=== PATIENT | male | born 1985 | race Caucasian/White ===

== ENCOUNTER 2020-01-10 16:07 | Emergency (ER) | payer BC, SELFPAY ==
--- NOTE | ~2020-01-10 | CT_ITS ---
EXAMINATION: CTA BRAIN/CAROTID DATE: 01/10/2020 19:30 INDICATION: Headache. TECHNIQUE: Computed tomographic angiography (CTA) of the head and neck was performed with 100 mL Omni paque-350 intravenous contrast. Multiplanar reconstructions and maximum intensity projection 3D-recon structions of the carotid arteries and of the intracranial arteries were created by the technologist on a separate workstation. Precontrast CT of the head was also obtained. Automated exposure control and iterative reconstruction technique were employed.The dose-length product was 1715.12 mGy-cm. COMPARISON: None. FINDINGS: Carotid arteries: There is 0% stenosis of the right carotid bulb relative to normal distal artery lumen diameter (NASCE T criteria). There is 0% stenosis of the left carotid bulb relative to normal distal artery lumen patricia meter. Evaluation of the vessels cephalad to the level of the carotid bulb the level of the C2 verteb ral body is limited by motion artifact. Cervical soft tissues are unremarkable. Visualized apices of lungs are clear. Mild cervical spondylosis. Head: Small amount of linear high attenuation along a couple sulci in the left parietal region suspicious f or small amount of subarachnoid hemorrhage. No evident active contrast extravasation. No acute infarc tion or abnormal extra axial fluid collection. Ventricles are normal and symmetric. No mass/mass effe ct. The orbits, paranasal sinuses and mastoid air cells are normal. Intracranial arteries There is no hemodynamically significant stenosis in the vertebral, basilar and internal carotid arter ies. Vertebral arteries are codominant. There are no aneurysms identified. Both A1 and P1 segments a re patent. Cerebral arterial arborization appears symmetric. IMPRESSION: 1. Small linear region of increased attenuation along a sulcus in the left parietal region suspicious for small amount of subarachnoid hemorrhage. Differential includes dystrophic calcification. Differe ntial would include small amount of dystrophic calcification. Dr. Garza discussed these findings w gladis Turner at 7:42 PM. 2. 0% stenosis of the left and right carotid bulbs relative to normal distal artery lumen diameter (N ASCET criteria). 3. Normal cerebral angiogram with no evident thrombosis, dissection or aneurysm. Reviewed, dictated and finalized at location A. E'S CLERK IMPRESSION: 1. Small linear region of increased attenuation along a sulcus in the left dylan etal region suspicious for small amount of subarachnoid hemorrhage. Differentia l includes dystrophic calcification. Differential would include small amount of dystrophic calcification. Dr. Garza discussed these findings with JEANIE Turner at 7:42 PM. 2. 0% stenosis of the left and right carotid bulbs relative to normal distal ar janice lumen diameter (NASCET criteria). 3. Normal cerebral angiogram with no evident thrombosis, dissection or aneurysm .
[2020-01-10 17:07] VITALS: BP 164/94; PULSE 72; RESP 16; TEMP 36.8; O2SAT 100
[2020-01-10 18:43] LABS: Basophils Absolute Auto 0.1 K/mm3 (0.0-0.1); Basophils Percent Auto 0.7 % (0.2-1.2); Eosinophils Absolute Auto 0.1 K/mm3 (0-0.3); Eosinophils Percent Auto 1.1 % (0-4.4); Hematocrit 43.3 % (42.0-52.0); Hemoglobin 14.4 g/dL (14.0-18.0); Immature Granulocyte Absolute 0.02 K/mm3 (0.00-0.031); Immature Granulocyte Percent A 0.2 % (0-0.5); Lymphocytes Absolute Auto 2.91 K/mm3 (0.9-3.2); Lymphocytes Percent Auto 35.2 % (18.3-44.2); Mean Corpuscular HGB Conc 33.3 g/dl (32-36); Mean Corpuscular Hemoglobin 30.4 pg (26-34); Mean Corpuscular Volume 91.4 fl (80-100); Mean Platelet Volume 12.9 fl (7.4-10.4); Monocytes Absolute Auto 0.7 K/mm3 (0.1-0.6); Monocytes Percent Auto 8.3 % (2.6-8.5); Neutrophils Absolute Auto 4.5 K/mm3 (1.3-6.7); Neutrophils Percent Auto 54.5 % (45.5-73.1); Platelet Count Result 235 k/mm3 (150-375); Red Blood Count 4.74 M/mm3 (4.6-6.20); Red Cell Distribution Width 12.7 % (11.5-14.5); White Blood Count 8.3 K/mm3 (4.5-10.0)
--- NOTE | 2020-01-10 18:52 | ED.GENADULT ---
HPI - General Adult General Chief complaint: Headache <Diaz Turner PA-C - Last Filed: 01/10/20 20:26> Stated complaint: RODRIGUEZ, felt like i was going to pass out <Diaz Turner PA-C - Last Filed: 01/10/20 20:26> Time Seen by Provider: 01/10/20 17:14 <Diaz Turner PA-C - Last Filed: 01/10/20 20:26> Source: patient <Diaz Turner PA-C - Last Filed: 01/10/20 20:26> Mode of arrival: ambulatory <Diaz Turner PA-C - Last Filed: 01/10/20 20:26> Limitations: no limitations <Diaz Turner PA-C - Last Filed: 01/10/20 20:26> History of Present Illness HPI narrative: Patient is a 34-year-old male who ambulates to emergency department with complaints of right temporal parietal headache that started today noting only posterior mild occipital pain at this time patient denies any injury trauma or recent illness notes that he did have a similar occurrence last week which resolved patient notes today he felt like he might pass out when it occurred. Patient has not taken anything for his symptoms and presents per private vehicle and has no other complaints denies any new medications illicit drug use or alcohol use <Diaz Turner PA-C - Last Filed: 01/10/20 20:26> Related Data Allergies/adverse reactions: Allergies Allergy/AdvReac Type Severity Reaction Status Date / Time No Known Allergies Allergy Verified 07/01/18 16:58 <Diaz Turner PA-C - Last Filed: 01/10/20 20:26> Review of Systems Review of Systems: All systems reviewed & are unremarkable except as noted in HPI and below <Diaz Turner PA-C - Last Filed: 01/10/20 20:26> [facility] Family History Family History: Family History (Updated 03/11/18 @ 10:03 by DOCTOR UNKNOWN) Mother Family history of mental disorder Depression Family history of attention deficit hyperactivity disorder (ADHD) Other Diabetes mellitus <Diaz Turner PA-C - Last Filed: 01/10/20 20:26> Social History Social History: Social History Smoking status: Never smoker Alcohol intake: current Gender identity (if verbalized by the patient): Male <Diaz Turner PA-C - Last Filed: 01/10/20 20:26> Exam Narrative: Exam Narrative: GENERAL: Well-appearing, well-nourished, and in no acute distress. HEAD: Normocephalic, atraumatic. EYES: PERRLA and EOMI. ENT: Nares clear, no rhinorrhea or epistaxis. Mucous membranes moist. Oropharynx without tonsillar hypertrophy exudate or other lesions. Bilateral TMs pearly mike nonbulging NECK: Supple. No adenopathy or masses. CHEST: Clear to auscultation. No respiratory distress. No wheezes rales or rhonchi HEART: Regular rate and rhythm. No murmur heard. Normal peripheral pulses. EXTREMITIES: Normal range of motion. No edema. SKIN: Warm, dry, no rash. NEURO: No focal deficits. Alert and oriented x3. Cranial nerves II through XII grossly intact. Cerebellar intact. Normal speech and gait PSYCH: Normal mood and affect. <Diaz Turner PA-C - Last Filed: 01/10/20 20:26> Course Course Emergency Course: Patient in the ER aware of case findings treatment plan and diagnosis given Diego in the emergency department will be transferred to [place] for neurosurgical evaluation as recommended by neurosurgery <Diaz Turner PA-C - Last Filed: 01/10/20 20:26> CAMPUS COORDINATOR/PA Physician Supervision For this patient encounter, I reviewed the CAMPUS COORDINATOR or PA documentation, treatment plan, and medical decision making; and I had [id number] time with this patient. Patient is sitting in bed in no acute distress. He is alert and oriented x 4. nonfocal neurological exam. no respiratory distress. He is aware of CT findings and plan for transfer. <Marjorie Bello MD - Last Filed: 01/10/20 20:46> Consultations Consultation #1: Discussed case with neurosurgery who would like the patient to be loaded with 1 g o
[2020-01-10 18:53] LABS: Partial Thromboplastin Time 25.7 SECONDS (22.3-36.8); Prothrombin Time 12.6 Seconds (11.1-14.7)
[2020-01-10 18:57] LABS: Blood Urea Nitrogen 12 mg/dL (9-20); Calcium 9.7 mg/dL (8.4-10.2); Carbon Dioxide 29 mmol/L (22-30); Chloride 100 mmol/L (98-107); Estimated CRCL calculation 135 ml/min; Estimated Glomerular Filt Rate > 60; Glucose 88 mg/dL (75-110); Potassium 3.7 mmol/L (3.4-5.0); Sodium 142 mmol/L (137-145)
--- NOTE | 2020-01-10 20:20 | PC.NURSE ---
Called [facility] to transport patient to [place] [facility]. Topete down a truck tonight and declined.
[2020-01-10] MEDS: levETIRAcetam 1000MG/NACL100ML 1,000 MG/100 ML BAG 400 MG IVPB (20:30)
[2020-01-10 20:53] VITALS: BP 155/105; PULSE 88; RESP 22; O2SAT 100
== END 2020-01-10 21:06 | disposition short-term general hospital (02) ==
PROVIDERS: Emergency Medicine Emergency Medical Services; Emergency Provider General Practice; PCP Family Medicine
DX: I60.9 Nontraumatic subarachnoid hemorrhage, unspecified (principal)
CPT/HCPCS: 36415; 70496; 70498; 80048; 85025; 85610; 85730; 96365; 99291; J1953; Q9967

== ENCOUNTER 2021-03-08 15:05 | Emergency (ER) | payer BC, SELFPAY ==
[2021-03-08 15:13] VITALS: BP 142/92; PULSE 85; RESP 16; TEMP 37; O2SAT 100
--- NOTE | 2021-03-08 15:33 | ED.URI ---
HPI - URI/Sore Throat General Chief Complaint: Ear Stated Complaint: ear pain/sinus pressure Time Seen by Provider: 03/08/21 15:21 Source: patient and RN notes reviewed Mode of arrival: ambulatory Limitations: no limitations History of Present Illness HPI Narrative: Patient presents today complaint of a 4-day history of right ear pressure and pain, sinus pressure, postnasal drip, and some intermittent dizziness. Denies cough, fever. He does report some's right-sided sore throat, but states is likely due to his sore throat. He has been taking Mucinex and some Vicks nasal spray. MD elicited complaint: nasal congestion and sinus pain Related Data Home Medications Medication Instructions Recorded Confirmed dextroamphetamine-amphetamine 15 mg PO DAILY 03/08/21 03/08/21 Allergies Allergy/AdvReac Type Severity Reaction Status Date / Time No Known Allergies Allergy Verified 03/08/21 15:11 Review of Systems Review of Systems: Narrative: CONSTITUTIONAL: Denies body aches, fever, chills, or sweats. EYES: Denies visual changes, redness, or discharge. ENT: Denies rhinorrhea. + Right ear pain and pressure, sinus pressure, postnasal drip, sore throat CARDIOVASCULAR: Denies chest pain, palpitations, or edema. RESPIRATORY: Denies cough or dyspnea. GASTROINTESTINAL: Denies abdominal pain, nausea, vomiting, or diarrhea. GENITOURINARY: Denies dysuria or hematuria. SKIN: Denies rash, itching, or wounds. MUSCULOSKELETAL: Denies back pain, joint pain, or myalgia. NEUROLOGIC: Denies headache, numbness, tingling, or weakness.+ Dizziness PSYCH: Denies depression or anxiety. [facility] Past Medical History Medical History (Updated 03/08/21 @ 15:59 by Jenny Jasso, [employer], ) ADD (attention deficit disorder) Family History Family History Mother Family history of mental disorder Depression Family history of attention deficit hyperactivity disorder (ADHD) Other Diabetes mellitus Social History Social History Smoking status: Never smoker Alcohol intake: current Gender identity (if verbalized by the patient): Male Comments At time of signature, I have reviewed and agree with nursing past medical, surgical, social and family history unless otherwise noted. Please see nursing chart for further information. There is no relevant family history pertinent to the presenting complaint Exam Narrative: Exam Narrative: GENERAL: Well-appearing, well-nourished, and in no acute distress. HEAD: Normocephalic, atraumatic. EYES: EOMI. No redness or drainage. Conjunctivae normal. ENT: Mucous membranes pink and moist. Nares mildly congested. No rhinorrhea. Left TM normal. Right TM with moderate middle ear effusion clear yellow fluid without sign of bacterial infection. Throat with cobblestoning and clear postnasal drainage. Uvula midline. NECK: Normal AROM. Supple. No lymphadenopathy. CHEST: No respiratory distress. Clear to auscultation. HEART: Regular rate and rhythm. No murmur appreciated. Normal peripheral pulses. EXTREMITIES: Normal range of motion. No edema. SKIN: Warm, dry, no rash. Capillary refill normal. Normal skin turgor. NEURO: No focal deficits. Alert and oriented x3. Gait steady. PSYCH: Normal affect. No signs of depression or anxiety. Course Vital Signs Vital signs: Vital Signs Temperature 98.6 F 03/08/21 15:13 Pulse Rate 85 03/08/21 15:13 Respiratory Rate 16 03/08/21 15:13 Blood Pressure 142/92 H 03/08/21 15:13 Pulse Oximetry 100 03/08/21 15:13 Temperature 98.6 F 03/08/21 15:13 Pulse Rate 85 03/08/21 15:13 Respiratory Rate 16 03/08/21 15:13 Blood Pressure 142/92 H 03/08/21 15:13 Pulse Oximetry 100 03/08/21 15:13 Reviewed. Pt has been instructed to follow up with his PCP regarding his elevated blood pressure today. MDM - URI/Sore Throat Differential D
== END 2021-03-08 15:40 | disposition home or self-care (01) ==
PROVIDERS: Emergency Provider Nurse Practitioner
DX: J30.9 Allergic rhinitis, unspecified (principal); H65.91 Unspecified nonsuppurative otitis media, right ear; F98.8 Other specified behavioral and emotional disorders with onset usually occurring in childhood and adolescence
CPT/HCPCS: 99213; G0463

== ENCOUNTER 2024-07-05 13:11 | Emergency (ER) | payer BC, SELFPAY ==
--- NOTE | 2024-07-05 13:18 | ED.URI ---
HPI - URI/Sore Throat General Chief Complaint: Upper Respiratory Infection Stated Complaint: Sinus Infection Symptoms Time Seen by Provider: 07/05/24 13:25 Source: patient Mode of arrival: ambulatory Limitations: no limitations History of Present Illness HPI Narrative: Saleem is a 38-year-old male patient presenting to the clinic today with complaints of possible sinus infection. He reports he is having some sinus pain to the right maxillary area, green nasal drainage, epistaxis, right ear pain, and headache. States that this started over 1 week ago when he was coming back from [facility]. Denies any fever or chills. Denies sore throat MD elicited complaint: sore throat and nasal congestion Related Data Home Medications Medication Instructions Recorded Confirmed dextroamphetamine-amphetamine ER 15 mg PO DAILY 03/08/21 07/05/24 15 mg 24hr capsule,extend release Allergies Allergy/AdvReac Type Severity Reaction Status Date / Time No Known Allergies Allergy Verified 07/05/24 13:20 Review of Systems Review of Systems: Pertinent positives per HPI. Patient denies any fever, chills, rash, headache, visual changes, dizziness, cough, shortness of breath, chest pain, palpitations, nausea, vomiting, diarrhea, constipation, abdominal pain, or any urinary issues. PMFSH Past Medical History Medical History ADD (attention deficit disorder) Family History Family History Mother Family history of mental disorder Depression Family history of attention deficit hyperactivity disorder (ADHD) Other Diabetes mellitus Social History Social History Smoking status: Never smoker Alcohol intake: current Gender identity (if verbalized by the patient): Male Comments At the time of my signature, I reviewed and agree with the nursing past medical, surgical, social, and family history. There is no relevant family history pertinent to the patient complaint. Exam Narrative: General: Well-developed, well nourished, in no apparent distress Head: Normocephalic, atraumatic Eyes: Pupils equally round and reactive to light bilaterally, EOM intact, sclera and conjunctive clear, no discharge, lids normal Ears: TMs intact and congested, ear canals clear, no drainage, grossly hearing normal. Nose: Nares patent, green nasal discharge, severe inflammation to the right nare, right maxillary sinus tenderness. Mouth: Oral pharynx without lesions or masses, good dentition, MMM. Neck: Supple, trachea midline, no enlargement of anterior or posterior cervical nodes, no thyroid masses or goiter palpable. Cardio: Regular rate and rhythm, s1 and s2 normal, no murmur appreciated. Resp: Clear to auscultation bilaterally, no rhonchi, rales, wheezing or rubs Course Course Emergency Course: Portions of this record may have been created with voice recognition software. Level of Care: Express Care Visit Vital Signs Vital signs: Vital signs reviewed MDM - URI/Sore Throat MDM Narrative Medical decision making narrative: At the time of visit patient is resting comfortably on the exam table. Patient appears to be nontoxic. Plan: I suspect patient has acute bacterial rhinosinusitis. Prescription for Augmentin and prednisone was sent to the pharmacy. Supportive measures were discussed with the patient and they voiced understanding discharge instructions and agrees to treatment plan. Return precautions reviewed Differential Diagnosis Differential diagnosis: Likely upper respiratory infection, otitis media, sinusitis, viral infection, bronchitis, influenza, pharyngitis and other (COVID) Discharge Plan Discharge Clinical Impression: Acute bacterial rhinosinusitis Patient Disposition: Home, Self-Care Condition: Stable Instructions: Antibiotic Form
[2024-07-05 13:22] VITALS: BP 136/98; PULSE 92; RESP 15; TEMP 36.2; O2SAT 100
== END 2024-07-05 13:27 | disposition home or self-care (01) ==
PROVIDERS: Emergency Provider Nurse Practitioner Family
DX: J01.90 Acute sinusitis, unspecified (principal); F98.8 Other specified behavioral and emotional disorders with onset usually occurring in childhood and adolescence
CPT/HCPCS: 99213; G0463

== ENCOUNTER 2025-10-23 09:54 | Emergency (ER) | payer BC, SELFPAY ==
[2025-10-23 10:10] VITALS: BP 137/82; PULSE 72; RESP 16; TEMP 36.3; O2SAT 100
--- NOTE | 2025-10-23 11:21 | ED_ITS ---
HPI - General Adult General Chief complaint: Upper Respiratory Infection Stated complaint: Covid Positive Time Seen by Provider: 10/23/25 11:22 Source: patient Mode of arrival: ambulatory Limitations: no limitations History of Present Illness HPI narrative: 39-year-old male patient presents to [facility] with request for Paxlovid. Patient states he has had some head congestion and cold symptoms for the past 2- 3 days and did do a home test for COVID yesterday and did test positive. Patient states he has hit here today requesting a prescription for Paxil of it because he does have a that is getting treatments for breast cancer the also has COVID and she cannot be treated for Paxlovid Patient states that his 's oncologist did recommend that he come in to get the Paxlovid Related Data Home Medications ?Medication ?Instructions ?Recorded ?Confirmed ?Last Taken ?Type dextroamphetamine-amphetamine ER 15 mg PO DAILY 10/23/25 Unknown History 15 mg 24hr capsule,extend release fluoxetine 10 mg capsule mg 10/23/25 Unknown History metformin 500 mg tablet,extended mg PO 10/23/25 Unkno wn History release 24 hr Allergies Allergy/AdvReac Type Severity Reaction Status Date / Time No Known Allergies Allergy Verified 10/23/25 10:15 Review of Systems Review of Systems: CONSTITUTIONAL: Denies fever, chills, or sweats. EYES: Denies visual changes, redness, or discharge. ENT: Positive rhinorrhea, congestion, sore throat, denies otalgia. CARDIOVASCULAR: Denies chest pain, palpitations, or edema. RESPIRATORY: Denies cough or dyspnea. GASTROINTESTINAL: Denies abdominal pain, nausea, vomiting, or diarrhea. GENITOURINARY: Denies dysuria or hematuria. SKIN: Denies rash or itching. MUSCULOSKELETAL: Denies back pain, joint pain, or myalgia. NEUROLOGIC: positive headache, denies numbness, or weakness. PSYCHIATRIC: Denies anxiety or depression. [facility] Past Medical History Medical History ADD (attention deficit disorder) Family History Family History Mother Family history of mental disorder Depression Family history of attention deficit hyperactivity disorder (ADHD) Other Diabetes mellitus Social History Social History Smoking status: Never smoker Alcohol intake: current Gender identity (if verbalized by the patient): Male Comments at the time of my signature I agree with nursing past medical history, surgical, social, and family history. There is no relevant family history p ertinent to the presenting complaint. Course Course Level of Care: Express Care Visit Vital Signs Vital signs: Vital Signs Temperature 36.3 C L 10/23/25 10:10 Pulse Rate 72 10/23/25 10:10 Respiratory Rate 16 10/23/25 10:10 Blood Pressure 137/82 10/23/25 10:10 Pulse Oximetry 100 10/23/25 10:10 Temperature 36.3 C L 10/23/25 10:10 Pulse Rate 72 10/23/25 10:10 Respiratory Rate 16 10/23/25 10:10 Blood Pressure 137/82 10/23/25 10:10 Pulse Oximetry 100 10/23/25 10:10 vital signs reviewed. MDM MDM Narrative Medical decision making narrative: Discussed with patient that we will go ahead and test him again for the COVID just to ensure that we have a positive result in his chart for insurance reasons. Discussed with patient that many insurance is no longer cover the plaque Paxil of it but we are happy to go ahead and pursue provide him a prescription today given his circumstances. Discussed with patient he can also start improving his immune system by taking vitamin-C, vitamin D and zinc. Patient is aware of plan of care denies any other questions or concerns at this time. Differential Diagnosis Differential Diagnosis: Differential diagnosis: Allergic rhinitis, chronic sinusitis, tonsillitis, acute sinusitis, infectious mononucleosis, seasonal influenza, pertussis, diphtheria, meningococcal disease, viral syndrome, viral bronchitis, RSV, COVID-19 Discharge Plan Discharge Clinical Impression: COVID Patient Disposition: Home Condition: Stable Instructions: Antibiotic Form, COVID-19 (Coronavirus Disease 2019) (ED) Additional Instructions: * COVID-19 is a contagious respiratory illness caused by a virus that spreads from person to person. * The virus is transmitted through respiratory droplets from coughing, sneezing, talking or laughing. Droplets not blocked by masks can travel up to 6 feet. Masks are meant to decrease the chance of you spreading the virus to others. * COVID-19 is usually a self-limited illness with most people experiencing mild to moderate respiratory illness and recovery without requiring special treatment. * While most patients have mild to moderate symptoms, some can develop serious illness that requires hospitalization. This may develop after a week of illness. INSTRUCTIONS Personal Care * Rest * Drink plenty of fluids (non-alcoholic) * Acetaminophen (Tylenol?) 650 mg every 6 hours and/or Ibuprofen (Advil?) 600 mg every 6-8 hours as needed to reduce fever, aches or other pains * Treat any bothersome symptoms with [id number] medication Limit the spread to others * Isolate yourself as completely as possible. When to seek further evaluation: * Feeling short of breath or having trouble breathing * Persistent pain or pressure in the chest * New confusion or inability to become fully awake * Bluish lips or face * Symptoms last over 10 days and get worse instead of better Vitamin C: 2000mg in the AM, and 2000mg. Zinc: 50mg daily x 2 weeks Vitamin D3: 2000 IU daily. Probiotics: 10-12 strains; minimum 20-25 billion CFU Patient Language: Macedonian Prescriptions: New Paxlovid 300 mg (150 mg x 2)-100 mg tablets,dose pack See Rx Instructions .ROUTE .COMPLEX Qty: 30 0RF Rx Instructions: take TWO 150 mg tablets of nirmatrelvir with ONE 100 mg tablet of ritonavir twice daily for 5 days No Action dextroamphetamine-amphetamine 15 mg capsule,extended release 24hr 15 mg PO DAILY fluoxetine 10 mg capsule metformin 500 mg tablet extended release 24 hr PO Follow-up/Referrals: PHYSICIAN,MILL ROLL REWINDER [Primary Care Provider, Internal Medicine] Time of Disposition: 11:33
[2025-10-23 11:36] LABS: EDCOVIDSCREEN Positive (Negative)
== END 2025-10-23 11:46 | disposition home or self-care (01) ==
PROVIDERS: Emergency Provider Nurse Practitioner Family
DX: U07.1 COVID-19 (principal); F98.8 Other specified behavioral and emotional disorders with onset usually occurring in childhood and adolescence
CPT/HCPCS: 87426; 99213; G0463